=== PATIENT | male | born 1990 | race Caucasian/White ===

== ENCOUNTER 2020-11-19 15:52 | Emergency (ER) | payer SELFPAY ==
[2020-11-19 16:10] VITALS: BP 140/98
--- NOTE | 2020-11-19 16:43 | XRay Report ---
LEFT HAND 3 VIEW(S) INDICATION / CLINICAL INFORMATION: left hand injury. Left hand slammed in a door COMPARISON: 12/13/18 FINDINGS: BONES / JOINT(S): Acute, transverse fracture of the base of the middle phalanx of the left index fing er best seen on the lateral view. Old healed fracture of the little finger metacarpal. No change in r econstruction plate across the thumb metacarpal. No significant arthritis. SOFT TISSUES: Mild soft tissue swelling of the left index finger. ADDITIONAL FINDINGS: None. IMPRESSION: 1. Left index finger middle phalanx fracture. Signer Name: Analy Bradley MD Signed: 11/19/2020 4:39 PM Workstation Name: [id number]
--- NOTE | 2020-11-19 16:53 | Emergency Department Report ---
Upper Extremity - HPI Chief Complaint: Extremity Injury, Upper Stated Complaint: FINGER INJURY Time Seen by Provider: 11/19/20 16:08 Upper Extremity: Left Index Finger Occurred When: Today Mechanism: Crush (Door) Severity: mild, moderate Symptoms: Yes Pain with Movement, Yes Deformity, Yes Limited Range of Movement, Yes Swelling, No Numbness, No Weakness, No Bruising/Ecchymosis ED Review of Systems ROS: Stated complaint: FINGER INJURY Other details as noted in HPI Comment: All other systems reviewed and negative ED Past Medical Hx - Past Medical History Previous Medical History?: No - Surgical History Past Surgical History?: No - Social History Smoking Status: Current Every Day Smoker Substance Use Type: Marijuana - Medications Home Medications: Home Medications Medication Instructions Recorded Confirmed Last Taken Type Acetaminophen 500 mg PO Q6H PRN #20 tablet 12/13/18 Unknown Rx Acetaminophen/Codeine [Tylenol 1 tab PO Q6H PRN #10 tab 11/19/20 Unknown Rx /Codeine # 3 tab] Upper Extremity Exam - Exam General: Vital signs noted. No distress. Alert and acting appropriately. Head and Torso: No HEENT Abnormality, No Neck Tenderness, No Chest/Lungs Abnormality, No Abdominal Tenderness, No Back Tenderness Shoulder Exam: Yes Normal Range of Motion in Shoulder, No Shoulder Tenderness, No Clavicle Tenderness, No Shoulder Deformity, No AC Joint Tenderness Arm Exam: No Arm/Humerus Tenderness, No Arm Deformity Elbow: No Elbow Tenderness, No Normal Range of Motion in Elbow, No Elbow Deformity Forearm: No Forearm Tenderness, No Forearm Deformity, No Pain with Pronation, No Pain with Supination Wrist: Yes Normal ROM in Wrist, No Wrist Tenderness, No Wrist Deformity, No Snuffbox Tenderness, No Pain with Axial Thumb Compression Hand: Yes Hand Tenderness, Yes Digit Tenderness, Yes Normal ROM in Digit(s), Yes Digit(s) Deformity, No Hand Deformity, No Tendon Dysfunction CMS Exam: No Broken Skin, No Normal Distal Pulses, No Normal Capillary Refill, No Normal Distal Sensation Hand L/R Back: 1 - Pain swelling to this region involving the DIP and the PIP flexion deformity noted to the DIP. No fingernail trauma. Cap refills are brisk. Tenderness with palpation and attempted range of motion ED Course Vital Signs 11/19/20 16:02 Temperature 98.1 F Pulse Rate 85 Respiratory 16 Rate Blood Pressure 140/98 O2 Sat by Pulse 98 Oximetry - Procedure Description Procedures done: Left index finger placed in an aluminum frog finger splint. ED Medical Decision Making - Radiology Data Radiology results: report reviewed [facility] [address] [place] [address] XRay Report Signed Patient: ELISSA CURRY MR#: [id number] : 1990 Acct:[id number] Age/Sex: 30 / M ADM Date: 11/19/20 Loc: ED Attending Dr: Ordering Physician: ROLDAN ALY MD Date of Service: 11/19/20 Procedure(s): XR hand 3+V LT Accession Number(s): [id number] cc: ROLDAN ALY MD Fluoro Time In Minutes: LEFT HAND 3 VIEW(S) INDICATION / CLINICAL INFORMATION: left hand injury. Left hand slammed in a door COMPARISON: 12/13/18 FINDINGS: BONES / JOINT(S): Acute, transverse fracture of the base of the middle phalanx of the left index finger best seen on the lateral view. Old healed fracture of the little finger metacarpal. No change in reconstruction plate across the thumb metacarpal. No significant arthritis. SOFT TISSUES: Mild soft tissue swelling of the left index finger. ADDITIONAL FINDINGS: None. IMPRESSION: 1. Left index finger middle phalanx fracture. Signer Name: Analy Bradley MD Signed: 11/19/2020 4:39 PM Workstation Name: [id number] Transcribed By: DT Dictated By: Dylan Bradley MD Electronically Authenticated By: Dylan Bradley MD Signed Date/Time: 11/19/20 1639 DD/ 1637 TD/TT: - Medical Decision Making 30-year-old male with a finger injury due to crush in a door resulting in fra cture to the phalanx was placed in a finger splint.. Advised on cryotherapy and analgesic control of his injuries. Critical care attestation.: If time is entered above; I have spent that time in minutes in the direct care of this critically ill patient, excluding procedure time. ED Disposition Clinical Impression: Finger fracture, left Disposition: DC-01 TO HOME OR SELFCARE Is pt being admited?: No Does the pt Need Aspirin: No Condition: Stable Instructions: Finger Fracture, Adult, [id number], Cast or Splint Care, Adult Additional Instructions: Please keep finger in splint follow-up with orthopedic as discussed or utilized the pain medication and cryotherapy for comfort Prescriptions: Acetaminophen/Codeine [Tylenol /Codeine # 3 tab] 1 tab PO Q6H PRN #10 tab PRN Reason: Pain , Severe (7-10) Referrals: PRIMARY CAREMD [Primary Care Provider] - 3-5 Days BANDAR EVANGELISTA MD [Staff Physician] - 3-5 Days
[2020-11-19] MEDS ORDERED: HYDROcodone/ACETAMINOPHEN 10-325MG TAB PO ONE (17:05)
== END 2020-11-19 17:37 | disposition home or self-care (01) ==
LOC: ED 15:52
DX: S62.601A Fracture of unspecified phalanx of left index finger, initial encounter for closed fracture (principal); F12.90 Cannabis use, unspecified, uncomplicated; F17.200 Nicotine dependence, unspecified, uncomplicated; Z88.8 Allergy status to other drugs, medicaments and biological substances; Z79.899 Other long term (current) drug therapy; X58.XXXA Exposure to other specified factors, initial encounter; Y93.89 Activity, other specified; Y92.89 Other specified places as the place of occurrence of the external cause; Y99.8 Other external cause status

== ENCOUNTER 2021-07-23 00:01 | Emergency (ER) | payer SELFPAY ==
[2021-07-23 00:07] VITALS: BP 131/104
--- NOTE | 2021-07-23 00:11 | Emergency Department Report ---
Upper Extremity - HPI Stated Complaint: HAND PAIN Time Seen by Provider: 07/23/21 00:05 Upper Extremity: Right Hand Occurred When: Today Mechanism: Unsure (Occurred while playing football) Symptoms: Yes Pain with Movement, Yes Swelling, Yes Bruising/Ecchymosis, No Deformity, No Numbness, No Weakness Other History: 31-year-old male presents emerged department complaining of right hand pain and swelling which occurred after he had an injury playing football of unknown etiology pain pain is swollen tender and worse with palpation and range of motion no numbness or tingling noted ED Review of Systems ROS: Stated complaint: HAND PAIN Other details as noted in HPI Comment: All other systems reviewed and negative ED Past Medical Hx - Past Medical History Previous Medical History?: No - Surgical History Past Surgical History?: No - Social History Smoking Status: Never Smoker Substance Use Type: None - Medications Home Medications: Home Medications Medication Instructions Recorded Confirmed Last Taken Type Acetaminophen 500 mg PO Q6H PRN #20 tablet 12/13/18 Unknown Rx Acetaminophen/Codeine [Tylenol 1 tab PO Q6H PRN #10 tab 07/23/21 Unknown Rx /Codeine # 3 tab] Upper Extremity Exam - Exam General: Vital signs noted. No distress. Alert and acting appropriately. Head and Torso: No HEENT Abnormality, No Neck Tenderness, No Chest/Lungs Abnormality, No Abdominal Tenderness, No Back Tenderness Shoulder Exam: Yes Normal Range of Motion in Shoulder, No Shoulder Tenderness, No Clavicle Tenderness, No Shoulder Deformity, No AC Joint Tenderness Arm Exam: No Arm/Humerus Tenderness, No Arm Deformity Elbow: No Elbow Tenderness, No Normal Range of Motion in Elbow, No Elbow Deformity Forearm: No Forearm Tenderness, No Forearm Deformity, No Pain with Pronation, No Pain with Supination Wrist: Yes Normal ROM in Wrist, No Wrist Tenderness, No Wrist Deformity, No Snuffbox Tenderness, No Pain with Axial Thumb Compression Hand: Yes Hand Tenderness (Swelling between the first and third metacarpal and metacarpophalangeal joint tenderness with palpation to the distal aspect), Yes Normal ROM in Digit(s), No Hand Deformity, No Digit Tenderness, No Digit(s) Deformity, No Tendon Dysfunction CMS Exam: No Broken Skin, No Normal Distal Pulses, No Normal Capillary Refill, No Normal Distal Sensation ED Course Vital Signs 07/23/21 00:05 Temperature 98.3 F Pulse Rate 84 Respiratory 17 Rate Blood Pressure 131/104 [Right] O2 Sat by Pulse 98 Oximetry - Orthopedic Splinting/Casting Injury #1 Side: right Upper Extremity Injury Location: hand Upper Extremity Immobilizer: volar spint ED Medical Decision Making - Radiology Data Radiology results: report reviewed [facility] [address] [place] [address] XRay Report Signed Patient: ELISSA CURRY MR#: [id number] : 1990 Acct:[id number] Age/Sex: 31 / M ADM Date: 07/23/21 Loc: ED Attending Dr: Ordering Physician: YECENIA NELSON Date of Service: 07/23/21 Procedure(s): XR hand 3+V RT Accession Number(s): [id number] cc: YECENIA NELSON Fluoro Time In Minutes: RIGHT HAND 3 VIEWS INDICATION / CLINICAL INFORMATION: Right hand pain and swelling. COMPARISON: None available. FINDINGS: BONES / JOINT(S): There is a possible fracture line involving one of the distal metacarpals on the lateral view. No abnormality is seen on the AP oblique views however. No significant arthritis. SOFT TISSUES: There is moderate soft tissue swelling involving the dorsum of the hand. ADDITIONAL FINDINGS: None. IMPRESSION: Possible fracture of one of the distal metacarpals only seen on the lateral view. There is associated soft tissue swelling. Depending on clinical findings, a reverse o blique of the right hand may be helpful in further evaluation. Signer Name: Everett He MD Signed: 07/23/2021 12:31 AM Workstation Name: [id number] Transcribed By: RT Dictated By: Everett He MD Electronically Authenticated By: Everett He MD Signed Date/Time: 07/23/2130 DD/ TD/TT: Critical care attestation.: If time is entered above; I have spent that time in minutes in the direct care of this critically ill patient, excluding procedure time. ED Disposition Clinical Impression: Metacarpal bone fracture Disposition: 01 HOME / SELF CARE / HOMELESS Is pt being admited?: No Does the pt Need Aspirin: No Condition: Stable Instructions: Metacarpal Fracture, Cast or Splint Care, Adult Prescriptions: Acetaminophen/Codeine [Tylenol /Codeine # 3 tab] 1 tab PO Q6H PRN #10 tab PRN Reason: Pain , Severe (7-10) Referrals: EVERETT EVANGELISTA MD [Staff Physician] - 3-5 Days
--- NOTE | 2021-07-23 00:35 | XRay Report ---
RIGHT HAND 3 VIEWS INDICATION / CLINICAL INFORMATION: Right hand pain and swelling. COMPARISON: None available. FINDINGS: BONES / JOINT(S): There is a possible fracture line involving one of the distal metacarpals on the la teral view. No abnormality is seen on the AP oblique views however. No significant arthritis. SOFT TISSUES: There is moderate soft tissue swelling involving the dorsum of the hand. ADDITIONAL FINDINGS: None. IMPRESSION: Possible fracture of one of the distal metacarpals only seen on the lateral view. There i s associated soft tissue swelling. Depending on clinical findings, a reverse oblique of the right ritchie d may be helpful in further evaluation. Signer Name: Everett He MD Signed: 07/23/2021 12:31 AM Workstation Name: [id number]
[2021-07-23] MEDS ORDERED: HYDROcodone/ACETAMINOPHEN 5-325 MG TAB PO STA (03:25)
== END 2021-07-23 04:00 | disposition home or self-care (01) ==
LOC: ED 00:01
DX: S62.309A Unspecified fracture of unspecified metacarpal bone, initial encounter for closed fracture (principal); X58.XXXA Exposure to other specified factors, initial encounter; Y93.89 Activity, other specified; Y92.89 Other specified places as the place of occurrence of the external cause; Y99.8 Other external cause status
CPT/HCPCS: 99283